=== PATIENT | female | born 1980 | race Caucasian/White ===

== ENCOUNTER 2018-03-11 15:44 | Emergency (ER) | payer MEDICAID ==
[~2018-03-11] VITALS: Ht 180.3 cm; Wt 88.5 kg
[2018-03-11] MEDS ORDERED: KETOROLAC TROMETH 60MG/2ML VIAL IM ONE (21:30)
[2018-03-11] MEDS ORDERED: methylPREDNISolone SOD SUCC 125 MG/2 ML VL IM ONE (21:30)
== END 2018-03-11 22:02 | disposition home or self-care (01) ==
LOC: ER 15:52
DX: S22.31XA Fracture of one rib, right side, initial encounter for closed fracture (principal); W18.2XXA Fall in (into) shower or empty bathtub, initial encounter; Y93.E1 Activity, personal bathing and showering; Y92.091 Bathroom in other non-institutional residence as the place of occurrence of the external cause; Y99.8 Other external cause status
CPT/HCPCS: 71101; 96372; 99283; J1885; J2930

== ENCOUNTER 2019-02-13 23:00 | Emergency (ER) | payer MEDICAID ==
[~2019-02-13] VITALS: Ht 180.3 cm; Wt 90.7 kg
[2019-02-13 23:00] VITALS: BP 136/91
== END 2019-02-13 23:16 | disposition left against medical advice (07) ==
LOC: EDSEX 23:00 → EDBD 23:00 → ER 23:03
DX: T65.91XA Toxic effect of unspecified substance, accidental (unintentional), initial encounter (principal); Y92.89 Other specified places as the place of occurrence of the external cause; Z53.21 Procedure and treatment not carried out due to patient leaving prior to being seen by health care provider